=== PATIENT | female | born 1985 | race Caucasian/White ===

== ENCOUNTER 2017-07-11 21:06 | Emergency (ER) | payer OTHER ==
[2017-07-11 21:28] VITALS: BP 142/75; PULSE 93; TEMP 98.1; BMI 24.1
--- NOTE | 2017-07-11 23:23 | PDOC ---
History of Present Illness - General Chief Complaint: Psychiatric Stated Complaint: CHEST PAIN Time Seen by Provider: 07/11/17 23:07 History Source: Patient - History of Present Illness Initial Comments: 07/12/17 01:11 32-year-old female complaining of chest pain and pressure for 1 day. Patient for several weeks have been having chest pain and pressure after traumatic loss of a sibling one month ago. Patient had a full cardiac workup 1 week ago which was negative. Patient currently is not on any OCP, denies long travels, pleuritic chest pain. Reports being under a lot of stress due to the loss of a sibling. Past History - Past Medical History Allergies/Adverse Reactions: Allergies Allergy/AdvReac Type Severity Reaction Status Date / Time No Known Allergies Allergy Verified 07/11/17 21:28 Home Medications: Ambulatory Orders Cyclobenzaprine HCl [Flexeril -] 10 mg PO Q8H PRN #20 tablet 12/06/14 Acetaminophen/Caffeine/Butalb [Fioricet -] 1 tab PO Q12H 01/11/15 Alprazolam [Xanax -] 0.25 mg PO BID PRN 01/11/15 - Immunization History Td Vaccination: No - Suicide/Smoking/Psychosocial Hx Smoking Status: No Smoking History: Never smoked Have you smoked in the past 12 months: No Number of Cigarettes Smoked Daily: 0 Information on smoking cessation initiated: No Hx Alcohol Use: Yes Drug/Substance Use Hx: No Substance Use Type: None Review of Systems - Review of Systems Psychiatric: Yes: Stressors, Sleep Pattern Change *Physical Exam - Vital Signs Last Vital Signs Temp Pulse Resp BP Pulse Ox 98.1 F 93 H 18 142/75 98 07/11/17 21:25 07/11/17 21:25 07/11/17 21:25 07/11/17 21:25 07/11/17 21:25 - Physical Exam General Appearance: Yes: Appropriately Dressed Respiratory/Chest: positive: Lungs Clear, Normal Breath Sounds. negative: Chest Tender Cardiovascular: positive: Regular Rhythm, Regular Rate, S1, S2. negative: Edema , JVD, Murmur, Bradycardia, Tachycardia, Diastolic Murmur, Systolic Murmur, Gallop/S3, Gallop/S4, Irregularly Irregular, Irregular, Other Gastrointestinal/Abdominal: negative: Normal Bowel Sounds, Tender, Flat, Soft, Organomegaly, Pulsatile Mass, Increased Bowel Sounds, Decreased BS, Protuberent , Distended, Guarding, Rebound, Tenderness, Hernia, Mass, Hepatomegaly, Spleenomegaly, Other Medical Decision Making - Medical Decision Making 07/12/17 01:13 Chest pain chest pain/anxiety p: Chest x-ray negative official read pending EKG normal sinus rhythm with sinus arrhythmia: 82 bpm UA negative. HCG negative *DC/Admit/Observation/Transfer Diagnosis at time of Disposition: Anxiety as acute reaction to exceptional stress Chest pain Qualifiers: Chest pain type: unspecified Qualified Code(s): R07.9 - Chest pain, unspecified ; R07.9 - Chest pain, unspecified - Discharge Dispostion Disposition: HOME Condition at time of disposition: Fair - Referrals Referrals: Mark Anthony Brooks MD [Primary Care Provider] - Call tomorrow - Patient Instructions Printed Discharge Instructions: Stress (Alternative Therapy) Additional Instructions: Follow up with you doctor as soon as possible. Please follow up with a psychologist as soon as possible. Continue Ambien as prescribed by your doctor
[2017-07-11 23:35] LABS: URINE APPEARANCE SLCLOUDY; URINE BILIRUBIN NEGATIVE (NEGATIVE); URINE BLOOD NEGATIVE (NEGATIVE); URINE COLOR LTYELLOW; URINE GLUCOSE (UA) NEGATIVE (NEGATIVE); URINE KETONE 1+ (NEGATIVE); URINE NITRITE NEGATIVE (NEGATIVE); URINE PROTEIN NEGATIVE (NEGATIVE); URINE UROBILINOGEN NEGATIVE mg/dL (0.2-1.0)
--- NOTE | 2017-07-12 12:40 | EKG ---
Test Reason : Blood Pressure : / mmHG Vent. Rate : 082 BPM Atrial Rate : 082 BPM P-R Int : 138 ms QRS Dur : 086 ms QT Int : 374 ms P-R-T Axes : 079 090 067 degrees QTc Int : 436 ms NORMAL SINUS RHYTHM WITH SINUS ARRHYTHMIA RIGHTWARD AXIS BORDERLINE ECG WHEN COMPARED WITH ECG OF 04-NOV-2014 10:00, NO SIGNIFICANT CHANGE WAS FOUND Confirmed by ABEL INFANTE, WILMAR ([id number]) on 07/12/2017 12:40:04 PM Referred By: Confirmed By:WILMAR ROMAN MD
[2017-07-12 14:44] LABS: URINE LEUK ESTERASE TRACE (NEGATIVE)
[2017-07-12 14:56] LABS: URINE RBC 0-3 /hpf (0-3); URINE WBC 0-3 /hpf (3-5)
[2017-07-12 14:57] LABS: URINE BACTERIA FEW /hpf (NEGATIVE)
== END 2017-07-12 01:28 | disposition home or self-care (01) ==
LOC: JER 21:06
DX: R07.9 Chest pain, unspecified (principal); F43.29 Adjustment disorder with other symptoms; Z63.4 Disappearance and death of family member
CPT/HCPCS: 71010-TC; 81003; 81015; 84703; 93005; 93010; 99281-25

== ENCOUNTER 2017-07-20 12:50 | Emergency (ER) | payer OTHER ==
[2017-07-20 12:56] VITALS: TEMP 98.7; BMI 23.8
--- NOTE | 2017-07-20 14:37 | PDOC ---
Attending Attestation - Resident Resident Name: David Sparks - HPI HPI: 07/24/17 08:01 Pt presents to the ED complaining of a one day history of chest pain that is sharp and stabbing. Patient has been seen in the ED in the past for chest pain with negative work up. Presented today because the pain was different in character than her previous pain. - Physicial Exam PE: 07/24/17 08:02 Agree with resident exam. patient is tearful. Lungs are clear. - Medical Decision Making 07/24/17 08:03 Patient presents to the ED complaining of chest pain. no risk factors for cardiovascular disease. Normal EKG. PERC negative. Will check labs to rule out severe anemia, treat pain with toradol and reassess.
--- NOTE | 2017-07-20 15:08 | PDOC ---
History of Present Illness - General Chief Complaint: Chest Pain Stated Complaint: CHEST PAIN Time Seen by Provider: 07/20/17 14:24 History Source: Patient - History of Present Illness Initial Comments: 07/20/17 15:03 Patient is a 32 yo F with no significant PMHx presented today because of 5/10, intermittent, shooting chest pain that started last night. The pain starts near the left shoulder and radiates around the whole chest. She said shes been having chest pressure the last few weeks and went to the ED on 06/11 for it. They did an EKG, chest x ray and stress test and everything came back negative. She came today because of the new onset of pain. She said she lost her sister at the end of April and does not know whether this may be stress related or anxiety. She said shes been feeling nervous and anxious ever since the of her sister. She denies headache, SOB, dizziness, nausea, vomiting, weakness and abdominal pain. Past History - Travel Traveled outside of the country in the last 30 days: No Close contact w/someone who was outside of country & ill: No - Past Medical History Allergies/Adverse Reactions: Allergies Allergy/AdvReac Type Severity Reaction Status Date / Time No Known Allergies Allergy Verified 07/20/17 12:56 Home Medications: Ambulatory Orders Acetaminophen/Caffeine/Butalb [Fioricet -] 1 tab PO Q12H 01/11/15 Multivit with Iron-Minerals [Compete] 1 each PO DAILY 07/20/17 COPD: No Other medical history: Patient denies medical hx - Immunization History Td Vaccination: No - Suicide/Smoking/Psychosocial Hx Smoking Status: No Smoking History: Never smoked Have you smoked in the past 12 months: No Number of Cigarettes Smoked Daily: 0 Hx Alcohol Use: Yes (occasionally) Drug/Substance Use Hx: No Substance Use Type: None *Physical Exam - Vital Signs Last Vital Signs Temp Pulse Resp BP Pulse Ox 98.7 F 90 18 129/82 100 07/20/17 12:52 07/20/17 12:52 07/20/17 12:52 07/20/17 12:52 07/20/17 12:52 - Physical Exam Comments: 07/20/17 15:09 General: No acute distress, appears comfortable HEENT: oropharynx clear without exudates, conjunctiva clear Neck: supple CV: RRR, s1 s2 wnl, No Murmurs appreciated, no tenderness to palpation, radial pulses 2+ b/l, dp pulses 2+ b/l Abd: +Bs, nontender nondistended. Ext: no peripheral edema ED Treatment Course - LABORATORY CBC & Chemistry Diagram: 07/20/17 16:04 07/20/17 16:04 - ADDITIONAL ORDERS Additional order review: Laboratory Results 07/20/17 16:04 Sodium 139 Potassium 4.0 Chloride 105 Carbon Dioxide 23 Anion Gap 11 BUN 9 Creatinine 0.6 Creat Clearance w eGFR > 60 Random Glucose 90 Calcium 8.5 Total Bilirubin 0.4 AST 8 L D ALT 19 Alkaline Phosphatase 56 D Total Protein 7.2 Albumin 4.2 07/20/17 16:04 RBC 4.49 MCV 89.9 MCHC 34.1 RDW 12.4 D MPV 8.4 Neutrophils % 77.3 Lymphocytes % 16.1 D Monocytes % 5.7 Eosinophils % 0.4 Basophils % 0.5 - Medications Given in the ED: ED Medications Discontinued Medications Generic Name Dose Route Start Last Admin Trade Name Ronnyq PRN Reason Stop Dose Admin Ketorolac Tromethamine 10 mg 07/20/17 15:26 07/20/17 16:16 Toradol PO 07/20/17 15:27 10 mg ONCE ONE Administration Medical Decision Making - Medical Decision Making 07/20/17 15:16 Atypical Chest pain: Heart score 0. Unlikely PE, ruled out by PERC rule. CBC, CMP Toradol 10mg 07/20/17 16:43 CBC, CMP WNL Not in acute distress, denies chest pain. Hemodynamically stable. Will discharge. *DC/Admit/Observation/Transfer Diagnosis at time of Disposition: Atypical chest pain - Discharge Dispostion Disposition: HOME Admit: No - Referrals Referrals: Mark Anthony Brooks MD [Primary Care Provider] - - Patient Instructions Printed Discharge Instructions: Yoga May Help Reduce Anxiety and Stress Additional Instructions: If you feel your symptoms are worsening please call your doctor. If its an emergency, go to your nearest emergency department. - Post Discharge Activity
[2017-07-20] MEDS ORDERED: KETOROLAC TROMETHAMINE 10 MG TABLET PO ONE (15:26)
[2017-07-20 16:10] LABS: BASOPHIL 0.5 % (0-2.0); EOSINOPHIL 0.4 % (0-4.5); MCH 30.7 pg (25.7-33.7); MCHC 34.1 g/dl (32.0-36.0); MEAN CELL VOLUME 89.9 fl (80-96); MEAN PLT VOLUME 8.4 fl (7.5-11.1); NEUTROPHILS 77.3 % (42.8-82.8); PLATELET COUNT 246 K/MM3 (134-434); RDW 12.4 % (11.6-15.6); WHITE BLOOD COUNT 7.2 K/mm3 (4.0-10.0)
[2017-07-20 16:37] LABS: ALBUMIN 4.2 g/dl (3.4-5.0); ALK PHOS 56 U/L (45-117); ANION GAP 11 (8-16); BILIRUBIN,TOTAL 0.4 mg/dL (0.2-1.0); CALCIUM 8.5 mg/dL (8.5-10.1); CO2 23 mmol/L (21-32); CREATININE 0.6 mg/dL (0.55-1.02); GLUCOSE,RANDOM 90 mg/dL (74-106); SGOT/AST 8 U/L (15-37); SGPT/ALT 19 U/L (12-78); TOT PROT 7.2 g/dl (6.4-8.2)
[2017-07-20 17:00] VITALS: BP 117/80; PULSE 82
--- NOTE | 2017-07-25 15:48 | EKG ---
Test Reason : Blood Pressure : / mmHG Vent. Rate : 086 BPM Atrial Rate : 086 BPM P-R Int : 130 ms QRS Dur : 088 ms QT Int : 354 ms P-R-T Axes : 070 085 042 degrees QTc Int : 423 ms NORMAL SINUS RHYTHM RSR' IN V1 WHEN COMPARED WITH ECG OF 12-JUL-2017 00:36, NONSPECIFIC T WAVE ABNORMALITY NOW EVIDENT IN ANTERIOR LEADS APPEARANCE OF RSR' REPEAT EKG IF CLINICALLY INDICATED Confirmed by SHIVAM MCCLELLAN MD ([id number]) on 07/25/2017 3:48:26 PM Referred By: Confirmed By:SHIVAM MCCLELLAN MD
== END 2017-07-20 17:00 | disposition home or self-care (01) ==
LOC: JER 12:50
DX: R07.89 Other chest pain (principal)
CPT/HCPCS: 36415; 80053; 85025; 93005; 93010; 99282-25

== ENCOUNTER 2017-08-28 09:06 | Emergency (ER) | payer OTHER ==
[2017-08-28 09:18] VITALS: BP 120/77; PULSE 89; TEMP 97.8; BMI 23.8
--- NOTE | 2017-08-28 10:51 | PDOC ---
History of Present Illness - General Chief Complaint: Psychiatric Stated Complaint: CHEST PAIN/Anxiety Time Seen by Provider: 08/28/17 10:29 History Source: Patient, Spouse Exam Limitations: No Limitations - History of Present Illness Initial Comments: 08/28/17 10:51 Patient is here with with complaints of recurrent chest pain/ palpitations, pressure that expands across her chest and into both of her arms. has suffered from anxiety attacks in the past, has had thorough cardiac workups in June and has been seen here on a number of occasions for same. Denies fever, cough, any recent travel, does not take control pills. 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 No other drugs or cigarette. Does not drink excessive caffeine or any other stimulants. had loss of his sister in April which has left her with depression and anxiety/ panic attacks. is trying to obtain an appointment for therapist out of [facility]. Has been evaluated by her PMD who has prescribed Lexapro but only started taking last Monday. Has used Xanax in the past with some good resolution but understands does not wish to continue benzodiazepines on a long- term basis. Denies homicidal or suicidal ideation, feels safe at home. Timing/Duration: unsure Associated Symptoms: reports: chest pain, weakness. denies: fever/chills, headaches, syncope Past History - Travel Traveled outside of the country in the last 30 days: No Close contact w/someone who was outside of country & ill: No - Past Medical History Allergies/Adverse Reactions: Allergies Allergy/AdvReac Type Severity Reaction Status Date / Time No Known Allergies Allergy Verified 08/28/17 09:17 Home Medications: Ambulatory Orders Alprazolam [Xanax] 0.5 mg PO Q8H PRN #3 tablet MDD 3 08/28/17 Escitalopram Oxalate [Lexapro -] 10 mg PO DAILY 08/28/17 COPD: No Psychiatric Problems: Yes (anxiety,panic attacks) - Immunization History Td Vaccination: No - Suicide/Smoking/Psychosocial Hx Smoking Status: No Smoking History: Never smoked Have you smoked in the past 12 months: No Number of Cigarettes Smoked Daily: 0 Information on smoking cessation initiated: No Hx Alcohol Use: No Drug/Substance Use Hx: No Substance Use Type: None Review of Systems - Review of Systems Able to Perform ROS?: Yes Is the patient limited Citizen Of [place] proficient: Yes Constitutional: Yes: Symptoms Reported, See HPI, Malaise. No: Fever HEENTM: Yes: Symptoms Reported. No: Nose Congestion Respiratory: Yes: See HPI, Cough. No: Symptoms reported Musculoskeletal: Yes: Symptoms Reported Neurological: Yes: Symptoms reported All Other Systems: Reviewed and Negative *Physical Exam - Vital Signs Last Vital Signs Temp Pulse Resp BP Pulse Ox 97.8 F 89 18 120/77 99 08/28/17 09:15 08/28/17 09:15 08/28/17 09:15 08/28/17 09:15 08/28/17 09:15 - Physical Exam General Appearance: Yes: Nourished, Appropriately Dressed, Apparent Distress HEENT: positive: MERRY, Normal ENT Inspection, TMs Normal, Pharynx Normal Neck: positive: Supple, Lymphadenopathy (R), Lymphadenopathy (L) Respiratory/Chest: positive: Lungs Clear, Normal Breath Sounds Cardiovascular: positive: Regular Rate Female Pelvic Exam: negative: normal external exam Gastrointestinal/Abdominal: positive: Normal Bowel Sounds, Soft. negative: Tender Musculoskeletal: positive: Normal Inspection, CVA Tenderness Extremity: positive: Normal Capillary Refill, Normal Inspection. negative: Normal Range of Motion, Tender Integumentary: positive: Normal Color, Dry, Warm, Pale Neurologic: positive: cook apprentice II-XII NML intact, Fully Oriented, Alert, Normal Mood/ Affect, Normal Response, Motor Strength 5/5 Heart Score/ECG Review - ECG Impressions Normal ECG: Yes Non-specific ST Elevation: No Ischemic Changes: No Comment:: 08/28/17 10:35 No changes in EKG since July *DC/Admit/Observation/Transfer Diagnosis at time of Disposition: Anxiety as acute reaction to exceptional stress - Discharge Dispostion Disposition: HOME Condition at time of disposition: Stable Admit: No - Referrals Referrals: Mark Anthony Brooks MD [Primary Care Provider] - - Patient Instructions Printed Discharge Instructions: DI for Anxiety -- Adult Additional Instructions: Rest, avoid stressful activity and situations May consider yoga, exercise, or other relaxation techniques Avoid alcohol or other stimulants May use one half of 0.5 mg Xanax every 8 hours as needed for severe anxiety Continue Lexapro as directed Follow-up with PMD and actively seek psychiatric therapy/evaluation for further treatment - Post Discharge Activity Forms/Work/School Notes: Back to Work
--- NOTE | 2017-08-29 01:23 | EKG ---
Test Reason : Blood Pressure : / mmHG Vent. Rate : 098 BPM Atrial Rate : 098 BPM P-R Int : 130 ms QRS Dur : 096 ms QT Int : 350 ms P-R-T Axes : 074 089 049 degrees QTc Int : 446 ms NORMAL SINUS RHYTHM POSSIBLE LEFT ATRIAL ENLARGEMENT INCOMPLETE RIGHT BUNDLE BRANCH BLOCK BORDERLINE ECG WHEN COMPARED WITH ECG OF 20-JUL-2017 14:04, NO SIGNIFICANT CHANGE WAS FOUND Confirmed by GRACE IBRAHIM MD ([id number]) on 08/29/2017 1:23:25 AM Referred By: Confirmed By:GRACE IBRAHIM MD
== END 2017-08-28 11:05 | disposition home or self-care (01) ==
LOC: JERFT 09:06
DX: F41.1 Generalized anxiety disorder (principal); F43.0 Acute stress reaction
CPT/HCPCS: 93005; 93010; 99281-25

== ENCOUNTER 2018-06-19 14:53 | Emergency (ER) | payer OTHER ==
--- NOTE | 2018-06-19 15:09 | PDOC ---
Rapid Medical Evaluation Time Seen by Provider: 06/19/18 15:08 Medical Evaluation: Allergies Allergy/AdvReac Type Severity Reaction Status Date / Time No Known Allergies Allergy Verified 03/19/18 20:25 06/19/18 15:09 The patient presents with a chief complaint of: back pain I have performed a brief in-person evaluation of this patient. Pertinent physical exam findings: vss, I have ordered the following: provider to determine The patient will proceed to the ED for further evaluation. 06/19/18 15:12
[2018-06-19 15:12] VITALS: BMI 26.2
[2018-06-19] MEDS ORDERED: ACETAMINOPHEN 500 MG TABLET (FP) PO ONE (16:03)
[2018-06-19] MEDS ORDERED: ACETAMINOPHEN 325 MG TABLET (FP) ONE (16:06)
[2018-06-19] MEDS ORDERED: ACETAMINOPHEN 500 MG TABLET (FP) ONE (16:06)
--- NOTE | 2018-06-19 16:07 | PDOC ---
History of Present Illness - General Chief Complaint: Back Pain Stated Complaint: 20 WEEKS PREG/BACK PAIN Time Seen by Provider: 06/19/18 15:08 - History of Present Illness Initial Comments: 20 week gravid female presents for evaluation of lower back pain. She was seen in urgent care about a week ago she was told to take Tylenol for pain she has left-sided lower back pain with radicular symptoms into the left buttocks. No loss of bowel bladder function or saddle paresthesias. 06/19/18 16:03 Past History - Past Medical History Allergies/Adverse Reactions: Allergies Allergy/AdvReac Type Severity Reaction Status Date / Time No Known Allergies Allergy Verified 06/19/18 15:10 Home Medications: Ambulatory Orders Alprazolam [Xanax] 0.5 mg PO Q8H PRN #3 tablet MDD 3 08/28/17 Escitalopram Oxalate [Lexapro -] 10 mg PO DAILY 08/28/17 Nitrofurantoin Monohyd/M-Cryst [Macrobid -] 100 mg PO BID #14 capsule 03/19/18 Ondansetron [Zofran *Odt*] 8 mg SL TID #21 od.tablet 03/19/18 COPD: No Psychiatric Problems: Yes (anxiety,panic attacks) - Immunization History Td Vaccination: No - Suicide/Smoking/Psychosocial Hx Smoking Status: No Smoking History: Never smoked Have you smoked in the past 12 months: No Number of Cigarettes Smoked Daily: 0 Hx Alcohol Use: No Drug/Substance Use Hx: No Substance Use Type: None Review of Systems - Review of Systems Musculoskeletal: Yes: Back Pain All Other Systems: Reviewed and Negative *Physical Exam - Vital Signs Last Vital Signs Temp Pulse Resp BP Pulse Ox 98.7 F 110 H 18 122/81 99 06/19/18 15:10 06/19/18 15:10 06/19/18 15:10 06/19/18 15:10 06/19/18 15:10 - Physical Exam Comments: 06/19/18 16:04 Lumbar spine range of motion is decreased secondary to pain. 5 out of 5 strength bilateral lower extremities thighs and calves are soft and nontender she has no gross sensorimotor deficits. 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 Return to the emergency room should symptoms worsen or go unresolved. Please only take Tylenol neck pain for this point because of your . - Post Discharge Activity
[2018-06-19 16:59] VITALS: BP 120/69; PULSE 96; TEMP 98.3
== END 2018-06-19 17:07 | disposition home or self-care (01) ==
LOC: JER 14:53 → JERFT 14:53 → JER 17:07
DX: O26.892 Other specified pregnancy related conditions, second trimester (principal); M54.16 Radiculopathy, lumbar region; Z3A.20 20 weeks gestation of pregnancy
CPT/HCPCS: 99281-25

== ENCOUNTER 2018-10-30 17:00 | Inpatient (IN) | payer OTHER ==
[2018-10-30] MEDS ORDERED: TUBERCULIN PPD 5 TU/0.1ML SYRINGE (IN PATIENT USE ONLY) ID ONE (17:13)
[2018-10-30 17:39] VITALS: BMI 29.6
[2018-10-30] MEDS ORDERED: DEXTROSE 5%-LACTATED RINGERS 1,000 ML IV SCH ×2 (18:00→19:45)
[2018-10-30 18:31] LABS: BASO % 0.3 % (0-2.0); EOS % 0.6 % (0-4.5); HEMATOCRIT 33.3 % (32.4-45.2); HEMOGLOBIN 11.2 GM/dL (10.7-15.3); LYMPH % 16.8 % (8-40); MCH 28.6 pg (25.7-33.7); MCHC 33.8 g/dl (32.0-36.0); MEAN CELL VOLUME 84.7 fl (80-96); MEAN PLT VOLUME 8.9 fl (7.5-11.1); MONO % 5.7 % (3.8-10.2); NEUT % 76.6 % (42.8-82.8); PLATELET COUNT 264 K/MM3 (134-434); RBC 3.93 M/mm3 (3.60-5.2); RDW 14.1 % (11.6-15.6); WHITE BLOOD COUNT 7.2 K/mm3 (4.0-10.0)
[2018-10-30 18:50] LABS: PROTHROMBIN TIME (PATIENT) 11.8 SEC (9.7-13.0)
[2018-10-30 18:53] LABS: ACTIVATED PTT 25.2 SECONDS (25.2-36.5)
[2018-10-30 19:00] LABS: ANION GAP 6 MMOL/L (8-16); BLOOD UREA NITROGEN 7 mg/dL (7-18); CHLORIDE 104 mmol/L (98-107); CO2 27 mmol/L (21-32); CREATININE 0.5 mg/dL (0.55-1.3); GLUCOSE,RANDOM 109 mg/dL (74-106); POTASSIUM 3.9 mmol/L (3.5-5.1); SODIUM 137 mmol/L (136-145)
[2018-10-30] MEDS ORDERED: FENTANYL/BUPIVACAINE/NS/PF - PCEA - 50 ML DISP.SYRIN EP ONE (19:41)
[2018-10-30] MEDS ORDERED: BUPIVACAINE HCL/PF 0.25% (2.5MG/ML) 10 ML VIAL ONE (19:43)
[2018-10-30] MEDS ORDERED: LIDO 2%/EPI 1:200000 PRESRVFRE (20 ML SDVIAL) ONE (19:43)
[2018-10-30] MEDS ORDERED: ELECTROLYTE-148 SOLN 1,000 ML IV SCH (19:45)
--- NOTE | 2018-10-30 19:48 | HP ---
Past Medical History - Admission Chief Complaint: Labor pain History of Present Illness: 33 yo with h/o anxiety, admitted for induction of labor. Upon admission she was 4cm dilated with intact membrane. History Source: Patient Limitations to Obtaining History: No Limitations - Past Medical History ...: 4 ...Para: 3 ...Term: 1 ...: 2 ...EDC by Paula: 11/02/18 - Past Surgical History Past Surgical History: Yes: None Hx Myomectomy: No Hx Transabdominal Cerclage: No - Smoking History Smoking history: Never smoked Have you smoked in the past 12 months: No Aproximately how many cigarettes per day: 0 - Alcohol/Substance Use Hx Alcohol Use: No History of Substance Use: reports: None - Social History Usual Living Arrangement: Yes: With Spouse History of Recent Travel: No Home Medications - Allergies Allergies/Adverse Reactions: Allergies Allergy/AdvReac Type Severity Reaction Status Date / Time No Known Allergies Allergy Verified 10/30/18 17:48 - Home Medications Home Medications: Ambulatory Orders Pnv No.95/Ferrous Fum/Folic AC [ Vitamin Tablet] 1 each PO DAILY Vit C/Ascorb Sod/Multivit-Min [Emergen-C 500 mg Chewable Tab] 500 mg PO DAILY Family Disease History - Family Disease History Family History: Unremarkable Review of Systems - Review of Systems Constitutional: reports: No Symptoms Eyes: reports: No Symptoms HENT: reports: No Symptoms Neck: reports: No Symptoms Cardiovascular: reports: No Symptoms Respiratory: reports: No Symptoms Gastrointestinal: reports: No Symptoms Genitourinary: reports: Pain Breasts: reports: No Symptoms Reported Musculoskeletal: reports: No Symptoms Integumentary: reports: No Symptoms Neurological: reports: No Symptoms Endocrine: reports: No Symptoms Psychiatric: reports: No Symptoms Pain Intensity: 4 Physical Exam - Maternity Vital Signs: Vital Signs Temperature 98.2 F 10/30/18 17:29 Pulse Rate 82 10/30/18 17:29 Respiratory Rate 20 10/30/18 17:29 Blood Pressure 121/76 10/30/18 17:29 O2 Sat by Pulse Oximetry (%) Constitutional: Yes: Well Nourished Eyes: Yes: Conjunctiva Clear HENT: Yes: Atraumatic Neck: Yes: Supple Cardiovascular: Yes: Regular Rate and Rhythm Lungs: Clear to auscultation - Abdominal Exam/OB Number of Fetuses: Single Presentation: Vertex Regularity: Irregular Intensity: Mild - Vaginal Exam/OB Dilatation (cm): 4 Effacement (%): 70-80 Amniotic Membrane Status: Intact Station: -2 - Physical Exam Musculoskeletal: Yes: WNL Extremities: Yes: WNL ...Motor Strength: WNL Psychiatric: Yes: Alert, Oriented - Labs Lab Results: CBC, BMP 10/30/18 17:45 10/30/18 17:45 Problem List - Problems (1) 39 weeks gestation of Code(s): Z3A.39 - 39 WEEKS GESTATION OF Assessment/Plan 39 weeks gestation Admit to L&D Analgesia as needed Anticipate
[2018-10-30] MEDS ORDERED: OXYTOCIN 30 UNITS in 0.9% NS 30 UNIT/500 ML INFUS.BAG IVPB SCH (20:00)
[2018-10-30] MEDS ORDERED: NALOXONE HCL 0.4 MG/ML VIAL IVPUSH PRN (20:02)
[2018-10-30] MEDS ORDERED: FENTANYL/BUPIVACAINE/NS/PF - PCEA - 50 ML DISP.SYRIN EP SCH (20:15)
[2018-10-30] MEDS ORDERED: OXYTOCIN 20 UNITS in 0.9% NS 20 UNIT/1,000 ML INFUS.BAG IV ONE (22:02)
[2018-10-30] MEDS ORDERED: OXYTOCIN 30 UNITS in 0.9% NS 30 UNIT/500 ML INFUS.BAG IVPB ONE (22:02)
[2018-10-30] MEDS ORDERED: BENZOCAINE 20% 57 GM BOTTLE TP PRN (23:32)
[2018-10-30] MEDS ORDERED: BISACODYL 10 MG SUPP.RECT RC PRN (23:32)
[2018-10-30] MEDS ORDERED: WITCH HAZEL 50% (TUCKS) 40 PAD/JAR PAD TP PRN (23:32)
[2018-10-30] MEDS ORDERED: BENZOCAINE 28 GM HEMORRHOIDAL OINTMENT TP PRN (23:32)
[2018-10-30] MEDS ORDERED: METHYLERGONOVINE MALEATE 0.2 MG/1 ML AMP IM PRN (23:32)
--- NOTE | 2018-10-30 23:36 | PN ---
Delivery - Delivery Vaginal Delivery: Spontaneous Type of Anesthesia: Epidural Episiotomy/Laceration: None EBL (cc): 250 Delivery, Single - Feeding Plan Initial Plan: Elected not to breastfeed exclusively throughout hospitalization Remarks - Remarks Remarks: Normal spontaneous vaginal delivery of a live infant boy over intact perineum. Nose / Oropharynx suctioned @ perineum. Nuchal cord x 1 clamped and cut. Baby handed to nurse. Placenta expelled spontaneously intact. Mother in stable condition.
[2018-10-30] MEDS ORDERED: OXYTOCIN 20 UNITS in 0.9% NS 20 UNIT/1,000 ML INFUS.BAG IV SCH (23:45)
[2018-10-31] MEDS ORDERED: OXYTOCIN 20 UNITS in 0.9% NS 20 UNIT/1,000 ML INFUS.BAG IV ONE (00:40)
[2018-10-31] MEDS: ACETAMINOPHEN 325 MG TABLET (FP) PO PRN ×2 (04:52→16:43)
[2018-10-31] MEDS: IBUPROFEN 600 MG TABLET (FP) PO PRN ×2 (05:01→16:42)
[2018-10-31 07:46] LABS: BASO % 0.2 % (0-2.0); EOS % 0.4 % (0-4.5); HEMATOCRIT 29.7 % (32.4-45.2); HEMOGLOBIN 9.9 GM/dL (10.7-15.3); LYMPH % 12.2 % (8-40); MCH 28.3 pg (25.7-33.7); MCHC 33.5 g/dl (32.0-36.0); MEAN CELL VOLUME 84.5 fl (80-96); MEAN PLT VOLUME 8.6 fl (7.5-11.1); MONO % 6.5 % (3.8-10.2); NEUT % 80.7 % (42.8-82.8); PLATELET COUNT 208 K/MM3 (134-434); RBC 3.51 M/mm3 (3.60-5.2); RDW 14.1 % (11.6-15.6); WHITE BLOOD COUNT 11.8 K/mm3 (4.0-10.0)
[2018-10-31] MEDS: PRENATAL VITAMINS W/ FOLIC ACID TABLET (FP) PO SCH (11:19)
[2018-10-31] MEDS: FERROUS SO4 325 MG TABLET (FP) PO SCH ×2 (11:19→21:43)
--- NOTE | 2018-10-31 12:05 | PN ---
Post Progress Note - Subjective Subjective: Pt seen/evaluated at bedside. No complaints. Tolerating diet, ambulating, voiding, passing flatus. Type of Delivery: Vital Signs: Vital Signs Temperature 97.8 F 10/31/18 06:00 Pulse Rate 87 10/31/18 06:00 Respiratory Rate 18 10/31/18 06:00 Blood Pressure 118/78 10/31/18 06:00 O2 Sat by Pulse Oximetry (%) 100 10/31/18 00:30 Uterus: Yes: Fundus Firm, Fundus below umbilicus Abdomen/GI: Yes: Abdomen soft Lochia: Yes: Rubra Lochia, amount: Small Extremities: Yes: Calves non-tender. No: Edema Perineum: Yes: Intact Activity: Ambulating - Labs Labs: CBC WBC 11.8 K/mm3 (4.0-10.0) H 10/31/18 06:10 RBC 3.51 M/mm3 (3.60-5.2) L 10/31/18 06:10 Hgb 9.9 GM/dL (10.7-15.3) L 10/31/18 06:10 Hct 29.7 % (32.4-45.2) L 10/31/18 06:10 MCV 84.5 fl (80-96) 10/31/18 06:10 MCH 28.3 pg (25.7-33.7) 10/31/18 06:10 MCHC 33.5 g/dl (32.0-36.0) 10/31/18 06:10 RDW 14.1 % (11.6-15.6) 10/31/18 06:10 Plt Count 208 K/MM3 (134-434) D 10/31/18 06:10 MPV 8.6 fl (7.5-11.1) 10/31/18 06:10 Absolute Neuts (auto) 9.5 K/mm3 (1.5-8.0) H 10/31/18 06:10 Neutrophils % 80.7 % (42.8-82.8) 10/31/18 06:10 Lymphocytes % 12.2 % (8-40) D 10/31/18 06:10 Monocytes % 6.5 % (3.8-10.2) 10/31/18 06:10 Eosinophils % 0.4 % (0-4.5) 10/31/18 06:10 Basophils % 0.2 % (0-2.0) 10/31/18 06:10 Nucleated RBC % 0 % (0-0) 10/31/18 06:10 Problem List - Problems (1) Normal vaginal delivery Code(s): O80 - ENCOUNTER FOR FULL-TERM UNCOMPLICATED DELIVERY (2) Anemia Code(s): D64.9 - ANEMIA, UNSPECIFIED Assessment/Plan normal regular diet PO pain meds PNVs routine care
[2018-10-31] MEDS ORDERED: SENNOSIDES/DOCUSATE COMBO (SENNA PLUS) TABLET (UD) PO PRN (22:00)
[2018-11-01] MEDS: ACETAMINOPHEN 325 MG TABLET (FP) PO PRN (06:05)
[2018-11-01] MEDS: IBUPROFEN 600 MG TABLET (FP) PO PRN (06:06)
[2018-11-01 09:15] VITALS: BP 116/72; PULSE 85; TEMP 97.5
[2018-11-01] MEDS: FERROUS SO4 325 MG TABLET (FP) PO SCH (09:42)
[2018-11-01] MEDS: PRENATAL VITAMINS W/ FOLIC ACID TABLET (FP) PO SCH (09:42)
[2018-11-01] MEDS ORDERED: DIPHTH,PERTUSS(ACELL),TET 0.5 ML DISP.SYRIN IM ONE (10:00)
== END 2018-11-01 12:00 | disposition home or self-care (01) | DRG 560 ==
LOC: JLDR 17:00 → J3W 10-31 00:55
PROVIDERS: ADMIT Obstetrics & Gynecology; ATTEND Obstetrics & Gynecology
PROC: 10E0XZZ Delivery of Products of Conception, External Approach (ICD-10-PCS; principal; 2018-10-30)
PROC: 3E0P7VZ Introduction of Hormone into Female Reproductive, Via Natural or Artificial Opening (ICD-10-PCS; 2018-10-30)
DX: O69.81X0 Labor and delivery complicated by cord around neck, without compression, not applicable or unspecified (principal); O99.02 Anemia complicating childbirth; D64.9 Anemia, unspecified; Z3A.39 39 weeks gestation of pregnancy; Z37.0 Single live birth
CPT/HCPCS: 36415; 59409; 80048; 85025; 85610; 85730; 86593; 86850; 86900; 86901; 90715